=== PATIENT | male | born 1975 | race Hispanic/Latino ===

== ENCOUNTER 2020-09-28 05:54 | Emergency (ER) | payer OTHER | END 2020-09-28 06:28 | disposition home or self-care (01) | LOC: EDH 05:54 | DX: R60.0 Localized edema (principal); F41.9 Anxiety disorder, unspecified; F14.10 Cocaine abuse, uncomplicated; Z79.899 Other long term (current) drug therapy; I89.0 Lymphedema, not elsewhere classified | CPT/HCPCS: 99281 ==

== ENCOUNTER 2023-10-03 07:30 | Emergency (ER) | payer OTHER ==
[~2023-10-03] VITALS: Ht 180.3 cm; Wt 89.8 kg
[2023-10-03] MEDS ORDERED: MORPHINE 4 MG SYG IM ONE (09:00)
[2023-10-03 09:01] LABS: BASOPHILS # (AUTO) 0.04 K/uL (0.00-0.20); BASOPHILS % (AUTO) 0.4 % (0.0-5.0); EOSINOPHILS # (AUTO) 0.37 K/uL (0.00-0.70); EOSINOPHILS % (AUTO) 3.7 % (0.0-8.0); HEMATOCRIT 46.3 % (42-54); IMMATURE GRANULOCYTE ABSOLUTE 0.04 K/uL (0-1); LYMPHOCYTES # (AUTO) 1.7 K/uL (1.0-4.8); LYMPHOCYTES % (AUTO) 16.6 % (21.0-51.0); MEAN CORPUSCULAR HEMOGLOBIN 30.7 pg (27.0-33.0); MEAN CORPUSCULAR HGB CONC 33.3 g/dL (32.0-36.0); MEAN CORPUSCULAR VOLUME 92.4 fL (79-99); MONOCYTES # (AUTO) 0.8 K/uL (0.1-1.0); MONOCYTES % (AUTO) 7.5 % (3.0-13.0); NEUTROPHILS # (AUTO) 7.2 K/uL (1.8-7.7); NEUTROPHILS % (AUTO) 71.4 % (40.0-77.0); PLATELET COUNT (AUTO) 265 K/uL (130-400); RED BLOOD CELL COUNT(AUTO) 5.01 MIL/uL (4.50-6.20); RED CELL DISTRIBUTION WIDTH 12.1 % (11.0-15.5); WHITE BLOOD COUNT (AUTO) 10.1 K/uL (4.8-10.8)
[2023-10-03 09:13] LABS: INR < 0.93 (0.85-1.15); PROTHROMBIN TIME 10.3 SEC (9.6-11.6)
[2023-10-03 09:15] LABS: PARTIAL THROMBOPLASTIN TIME 26.2 SEC (26.3-35.5)
[2023-10-03 09:17] LABS: CREATININE 0.9 mg/dL (0.5-1.5); POTASSIUM 4.1 mmol/L (3.5-5.1)
[2023-10-03 09:24] LABS: ALBUMIN 3.6 g/dL (3.5-5.0); BILIRUBIN,TOTAL 0.4 mg/dL (0.2-1.0); TOTAL PROTEIN, SERUM 7.3 g/dL (6.0-8.3)
[2023-10-03] MEDS ORDERED: KETOROLAC 60 MG VIAL (30MG/ML) IM ONE (09:30)
[2023-10-03] MEDS ORDERED: CEFAZOLIN SODIUM 1 GM VIAL IM ONE (09:30)
[2023-10-03 10:07] VITALS: BP 127/74; PULSE 74; RESP 18; O2SAT 100
[2023-10-03] MEDS ORDERED: CEPH500B PO (10:18)
[2023-10-03] MEDS ORDERED: IBUP-2070 PO (10:18)
== END 2023-10-03 10:37 | disposition home or self-care (01) ==
LOC: EDH 07:30
DX: M25.531 Pain in right wrist (principal); M79.89 Other specified soft tissue disorders
CPT/HCPCS: 99284; 80053; 85025; 85610; 85730; 86140; 36415; 73110; 96372 ×3; J0690; J2270; J1885

== ENCOUNTER 2025-04-14 17:35 | Emergency (ER) | payer SELFPAY ==
[~2025-04-14] VITALS: Ht 180.3 cm; Wt 90.7 kg
[~2025-04-14 17:35] MED LIST: CEPH500B PO; FAMO-136 PO; IBUP-2070 PO; ONDA-243 PO
[2025-04-14 17:51] VITALS: BP 136/90; PULSE 114; RESP 18; TEMP 98.1
[2025-04-14 18:12] LABS: RAPID GROUP A STREP negative (NEGATIVE)
[2025-04-14 18:22] LABS: COVID19 (SARS ANTIGEN RAPID) PRESUMPTIVE NEGATIVE (NEGATIVE); INFLUENZA TYPE A Negative For Type A (NEGATIVE); INFLUENZA TYPE B Negative For Type B (NEGATIVE)
--- NOTE | 2025-04-14 20:19 | NUR ---
PATIENT ELOPED FROM FAST TRACK PRIOR TO BEING EXAMINED BY ED MD. PATIENT DID NOT INFORM STAFF HE WAS LEAVING, PATIENT IS NOT IN RESTROOMS, NOT IN ER LOBBY.
== END 2025-04-14 20:24 | disposition left against medical advice (07) ==
LOC: EDH 17:35
DX: J10.1 Influenza due to other identified influenza virus with other respiratory manifestations (principal); Z53.21 Procedure and treatment not carried out due to patient leaving prior to being seen by health care provider; Z20.822 Contact with and (suspected) exposure to COVID-19
CPT/HCPCS: 87426; 87804; 87880